=== PATIENT | female | born 1975 | race Caucasian/White ===

== ENCOUNTER → 2016-10-12 | Outpatient (CLI) | payer OTHER ==
--- NOTE | 2016-10-12 22:31 | US ---
EXAMINATION TYPE: US pelvis complete transvag DATE OF EXAM: 10/12/2016 4:55 PM COMPARISON: NONE CLINICAL HISTORY: 41-year-old female N92.0 MENORRHAGIA. Symptoms x 2 years; on thyroid meds status po st total thyroidectomy; large body habitus Date of LMP: 10/05/2016 TECHNIQUE: Multiple transabdominal sonographic images of the pelvis were obtained. Transvaginal scann ing was medically necessary to better evaluate the anatomy. FINDINGS: EXAM MEASUREMENTS: Uterus: 10.9 x 5.1 x 4.7cm Endometrial Stripe: 1.02 cm Right Ovary: 3.1 x 2.7 x 3.0cm Left Ovary: 2.3 x 2.9 x 2.2cm 1. Uterus: Anteverted Multiple Nabothian cysts, largest = 0.4 x 0.3 x 0.3 2. Endometrium: thick for Day 8 LMP as normal is 4 to 6mm. 3. Right Ovary: simple cyst = 3.1 x 1.9 x 3.0cm 4. Left Ovary: small cyst = 1.3 x 0.9 x 0.9cm 5. Bilateral Adnexa: wnl 6. Posterior cul-de-sac: wnl IMPRESSION: 1. Endometrial stripe measuring slightly thick (1.0 cm) for day 8 of the menstrual cycle. 2. A 3.1 cm dominant follicle or functional cyst in the right ovary.
== END | disposition home or self-care (01) ==
LOC: RADUSWWP 16:18
PROVIDERS: ATTEND Obstetrics & Gynecology
DX: N83.201 Unspecified ovarian cyst, right side (principal); N92.0 Excessive and frequent menstruation with regular cycle
CPT/HCPCS: 76830; 76856

== ENCOUNTER → 2016-11-09 | Outpatient (CLI) | payer OTHER ==
[2016-11-09 13:04] LABS: Basophils # (A) 0.1 k/uL (0-0.2); Basophils % (A) 1 %; CH 25.6; CHCM 29.6; Eosinophils % (A) 1 %; HCT 40.3 % (34.0-46.0); HDW 2.32; Hypochromasia Marked; Luc # (Auto) 0.17; Luc % (Auto) 3; Lymphocytes # (A) 1.8 k/uL (1.0-4.8); Lymphocytes % (A) 31 %; MCH 25.8 pg (25.0-35.0); MCHC 29.8 g/dL (31.0-37.0); MCV 86.7 fL (80.0-100.0); Mean Platelet Volume 6.6; Monocytes # (A) 0.3 k/uL (0-1.0); Monocytes % (A) 5 %; Neutrophils # (A) 3.4 k/uL (1.3-7.7); Neutrophils % (A) 60 %; RBC 4.65 m/uL (3.80-5.40); RDW 13.5 % (11.5-15.5); WBC 5.6 k/uL (3.8-10.6); WBC (Perox) 5.69
== END | disposition home or self-care (01) ==
LOC: LABPAT 12:26
PROVIDERS: ATTEND Obstetrics & Gynecology
DX: Z01.812 Encounter for preprocedural laboratory examination (principal)
CPT/HCPCS: 85025

== ENCOUNTER 2016-11-17 06:26 | Day surgery (SDC) | payer OTHER ==
[2016-11-16 09:46] VITALS: BMI 44.4
--- NOTE | 2016-11-16 19:28 | P.HPOB ---
History of Present Illness H&P Date: 11/16/16 Chief Complaint: Menorrhagia, Family planning This is a 41-year-old female 2 para 2 who presents for dilation and curettage with hysteroscopy and NovaSure endometrial ablation for menorrhagia with regular cycle and laparoscopic bilateral tubal ligation via fulguration for family planning. She complains of heavy menses that lasts at least 7 days with clotting. She also has occasional cramping. She has tried control pills in the past but did not like the side effects. Her pelvic ultrasound showed uterus measuring 10.9 x 5.1 x 4.7 cm with endometrial thickness of 1.02 cm. Her right ovary had a small simple cyst at 3.1 cm and the left ovary also had a small simple cyst at 1.3 cm. She complains of having to change a pad and tampon up to every half an hour during her heaviest part of her cycle. Obstetrical history: . History of 2 vaginal deliveries. Gynecologic history: No history of sexual transmitted diseases. Social history: She is single but has had a steady partner since 2014. 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 Review of Systems Constitutional: Reports fatigue, Reports weight loss Ears, nose, mouth and throat: Denies headache, Denies sore throat Cardiovascular: Denies chest pain, Denies shortness of breath Respiratory: Denies cough Gastrointestinal: Denies abdominal pain, Denies diarrhea, Denies nausea, Denies vomiting Genitourinary: Reports dysmenorrhea, Reports menorrhagia Menstruation: Reports period heavy Musculoskeletal: Denies myalgias Integumentary: Denies pruritus, Denies rash Neurological: Denies numbness, Denies weakness Psychiatric: Denies anxiety, Denies depression Past Medical History Past Medical History: Thyroid Disorder Additional Past Medical History / Comment(s): Anemia History of Any Multi-Drug Resistant Organisms: None Reported Past Surgical History: Orthopedic Surgery (Right wrist surgery, right ankle surgery), Tonsillectomy Additional Past Surgical History / Comment(s): Left partial thyroidectomy, right thyroidectomy Past Anesthesia/Blood Transfusion Reactions: Postoperative Nausea & Vomiting ( PONV) Past Psychological History: No Psychological Hx Reported Smoking Status: Never smoker Past Alcohol Use History: None Reported Past Drug Use History: None Reported - Past Family History Father Additional Family Medical History / Comment(s): "heart problems" Medications and Allergies Home Medications Medication Instructions Recorded Confirmed Type Levothyroxine Sodium [Synthroid] 75 mcg PO DAILY 11/16/16 11/16/16 History Levothyroxine Sodium [Synthroid] 300 mcg PO DAILY 11/16/16 11/16/16 History Allergies Allergy/AdvReac Type Severity Reaction Status Date / Time amoxicillin AdvReac Rash/Hives Verified 11/16/16 09:39 Exam Osteopathic Statement: *. No significant issues noted on an osteopathic structural exam other than those noted in the History and Physical/Consult. - Vital Signs Vital signs: Intake and Output 11/16/16 11/16/16 11/16/16 06:59 14:59 22:59 Other: Weight 140.614 kg Patient Weight 11/17/16 06:59 Weight 140.614 kg HEENT: Within normal limits Heart: Regular rate and rhythm Lungs: Clear to auscultation bilaterally Abdomen: Soft, nontender Pelvic exam: Uterus is mildly enlarged, anteverted, with no adnexal masses or tenderness palpated Extremities: Negative Homans Assessment and Plan (1) Menorrhagia with regular cycle Status: Acute (2) Family planning Status: Acute Plan: Proceed with dilation and curettage with hysteroscopy and NovaSure endometrial ablation along with laparoscopic bilateral tubal ligation via fulguration. I have discussed the risks, benefits, and alternative therapies for the above- mentioned procedure and for both sedation/anesthesia as well as necessary blood products administration, if indicated, as they pertain to this patient. The patient has indicated her understanding and acceptance of the risks and procedures discussed.
[~2016-11-17 06:26] MED LIST: DEXAMETHASONE SOD PHOSPHATE 10 MG/ML 1 ML VIAL IV ONE; LACTATED RINGERS 1,000 ML IV SCH; LIDOCAINE 1% 20 ML VIAL (10MG/ML) FOR IV START INTRADERMA PRN; MIDAZOLAM 2 MG/2 ML VIAL IV PRN; ONDANSETRON 4 MG/2 ML VIAL IVP ONE; Pre Op ABX Message 1 EACH MISC MISCELLANE ONE; SCOPOLAMINE 1.5MG/72HR PATCH TRANSDERM ONE
[2016-11-17] MEDS ORDERED: LIDOCAINE 1% 20 ML VIAL (10MG/ML) FOR IV START INTRADERMA ONE (06:58)
[2016-11-17] MEDS ORDERED: KETOROLAC 30 MG/ML 1 ML VIAL ONE (07:30)
[2016-11-17] MEDS ORDERED: NEOSTIGMINE 1 MG/ML 10 ML VIAL ONE (07:30)
[2016-11-17] MEDS ORDERED: SUCCINYLCHOLINE CHLORIDE 100 MG/5 ML SYR IV ONE (07:30)
[2016-11-17] MEDS ORDERED: HYDROmorphone (PF) 1 MG/ML ONE (07:30)
[2016-11-17] MEDS ORDERED: fentaNYL (PF) 50 MCG/ML 2 ML AMP ONE (07:30)
[2016-11-17] MEDS ORDERED: PROPOFOL 10 MG/ML 20 ML VIAL IV ONE (07:30)
[2016-11-17] MEDS ORDERED: MIDAZOLAM 2 MG/2 ML VIAL ONE (07:30)
[2016-11-17] MEDS ORDERED: ROCURONIUM BROMIDE 10 MG/ML 10 ML VIAL IV ONE (07:30)
[2016-11-17] MEDS ORDERED: GLYCOPYRROLATE 0.2 MG/ML 2 ML VIAL ONE (07:30)
[2016-11-17] MEDS ORDERED: BUPIVACAINE (PF) 0.25% 30 ML VIAL SQ ONE ×2 (07:53→08:16)
--- NOTE | 2016-11-17 08:22 | P.OP ---
Date of Procedure: 11/17/16 Preoperative Diagnosis: Menorrhagia, family planning Postoperative Diagnosis: Same Procedure(s) Performed: Laparoscopic bilateral tubal ligation via fulguration and dilation and curettage with hysteroscopy and NovaSure endometrial ablation Anesthesia: MICHAEL Surgeon: Latrice Young Estimated Blood Loss (ml): 5 Pathology: other (Endometrial curettings) Condition: stable Disposition: same day Indications for Procedure: This is a 41-year-old female 2 para 2 who presents for dilation and curettage with hysteroscopy and NovaSure endometrial ablation for menorrhagia with regular cycle and laparoscopic bilateral tubal ligation via fulguration for family planning. She complains of heavy menses that lasts at least 7 days with clotting. She also has occasional cramping. She has tried control pills in the past but did not like the side effects. Her pelvic ultrasound showed uterus measuring 10.9 x 5.1 x 4.7 cm with endometrial thickness of 1.02 cm. Her right ovary had a small simple cyst at 3.1 cm and the left ovary also had a small simple cyst at 1.3 cm. She complains of having to change a pad and tampon up to every half an hour during her heaviest part of her cycle. Operative Findings: Uterus is anteverted, sounded to 12 cm. Cervix is sounded to 3 cm. Upon hysteroscopy, a dyssynchronous endometrial pattern was noted. There was minimal endometrial curettings. Upon laparoscopy, both tubes appeared normal. The left ovary was adherent to the backside of the uterus and did appear to have some endometriosis noted. The right ovary appeared normal. Uterus appeared normal contour. Description of Procedure: The patient is taken to the operating room. She is placed in the dorsal lithotomy position after general anesthesia was given. She is prepped and draped in the normal sterile fashion. Bladder is drained with a catheter and then removed. Pelvic exam is performed under anesthesia. Uterus is found to be anteverted with no adnexal masses. She is placed in slight Trendelenburg position. A right angle retractor is used to visualize the cervix. The anterior lip of the cervix is grasped with a single-tooth tenaculum. Cervix is sounded to 3 cm. Uterus is sounded to 12 cm. Cervix is gently dilated with Schilling dilators until a hysteroscope could be passed. Hysteroscopy is performed using normal saline. The above noted findings are noted. Next a polyp forceps is introduced. A minimal amount of tissue was obtained. Next medium-sized size sharp curette was placed. A minimal to moderate amount of endometrial curettings were obtained. Next NovaSure array was inserted into the endometrial cavity. Length was set at 6.5 cm and width was determined to be 5 cm. Next cavity assessment was completed and passed on the first try. Next NovaSure array was fired at 179 W for 65 seconds. Next the array was removed, inspected and then discarded. Next the hysteroscope was reinserted. Uniform charring was noted. Pictures were taken. Hysteroscope was removed. Next the kroner uterine manipulator was inserted through the cervix and the balloon was inflated. Single-tooth tenaculum was removed from the anterior lip of the cervix. Minimal bleeding was noted. Speculum was removed. Next attention was turned to the abdomen. Gloves are changed. The infraumbilical fold was grasped in transverse fashion with 2 Allis clamps. A small transverse incision was made with a scalpel. A hemostat was used to carry the incision down to the underlying layer of fascia. A towel clip was placed above the umbilicus for retraction. A 11 mm disposable bladeless trocar was then inserted into the peritoneal cavity under direct visualization. Once inside, pneumoperitoneum was achieved with CO2 gas. The insert was removed and the camera was placed. Intraperitoneal placement was confirmed. No bleeding was noted. Next the patient was placed in Trendelenburg position. A small stab incision was made suprapubically and a 5 mm disposable bladeless trocar was inserted into the peritoneal cavity under direct visualization. Once inside pelvic contents were inspected. Next a bipolar Kleppinger instrument was placed through the inferior trocar and the midportion of each tube was brought away from other structures and completely fulgurated on approximate 2-3 cm segment of each tube. Excellent hemostasis was noted. A picture was taken. Pneumoperitoneum was released after the inferior trocar was removed under direct visualization. The upper trocar was then removed. The fascial incision was closed with 0 Vicryl suture in interrupted [id number] stitch. The skin incisions were then closed with 4- 0 Vicryl suture in a subcuticular fashion. Incisions were then injected with quarter percent Marcaine. Approximately 9 mL were used. Next the kroner uterine manipulator was removed. Minimal bleeding was noted. All sponge and needle counts are correct. The patient is then taken to recovery room in stable condition.
[2016-11-17 08:34] VITALS: TEMP 96.8
[2016-11-17 08:35] VITALS: RESP 16
[2016-11-17] MEDS: HYDROmorphone 1 MG/ML 1 ML SYRINGE IVP PRN ×2 (08:40→08:48)
[2016-11-17] MEDS ORDERED: ONDANSETRON 4 MG/2 ML VIAL IVP ONE (11:16)
[2016-11-17 11:41] VITALS: BP 105/67; PULSE 50
== END 2016-11-17 11:47 | disposition home or self-care (01) ==
LOC: OR 06:26
PROVIDERS: ATTEND Obstetrics & Gynecology
DX: N92.0 Excessive and frequent menstruation with regular cycle (principal); N85.9 Noninflammatory disorder of uterus, unspecified; Z30.2 Encounter for sterilization; N83.202 Unspecified ovarian cyst, left side; N83.201 Unspecified ovarian cyst, right side; E07.9 Disorder of thyroid, unspecified; Z88.0 Allergy status to penicillin; Z79.899 Other long term (current) drug therapy
CPT/HCPCS: 81025; 88305; 58563; 58670; J2250; J1100; J2710; J2405; J3010; J1885; J1170; J0330; J2704

== ENCOUNTER → 2017-10-19 | Outpatient (CLI) | payer OTHER ==
--- NOTE | 2017-10-22 07:32 | MM ---
Reason for exam: screening (asymptomatic). Last mammogram was performed 1 year and 6 months ago. History: Took hormonal contraceptives for 3 years beginning at age 19. Physical Findings: A clinical breast exam by your physician is recommended on an annual basis and results should be correlated with mammographic findings. MG Screening Mammo w CAD Bilateral CC and MLO view(s) were taken. Prior study comparison: April 16, 2016, bilateral MG screening mammo w CAD. There are scattered fibroglandular densities. No significant changes when compared with prior studies. ASSESSMENT: Negative, BI-RAD 1 RECOMMENDATION: Routine screening mammogram of both breasts in 1 year.
== END | disposition home or self-care (01) ==
LOC: RADMAMWWP 07:30
PROVIDERS: ATTEND Obstetrics & Gynecology
DX: Z12.31 Encounter for screening mammogram for malignant neoplasm of breast (principal)
CPT/HCPCS: 77067

== ENCOUNTER → 2019-05-19 | Outpatient (CLI) | payer OTHER ==
--- NOTE | 2019-05-22 08:20 | MM ---
Reason for exam: screening (asymptomatic). Last mammogram was performed 1 year and 7 months ago. History: Took hormonal contraceptives for 3 years beginning at age 19. Physical Findings: A clinical breast exam by your physician is recommended on an annual basis and results should be correlated with mammographic findings. MG Screening Mammo w CAD Bilateral CC, MLO, and XCCL view(s) were taken. Prior study comparison: October 19, 2017, bilateral MG screening mammo w CAD. April 16, 2016, bilateral MG screening mammo w CAD. The breast tissue is heterogeneously dense. This may lower the sensitivity of mammography. Benign calcifications. There is chronic nodularity in the right breast. No significant changes when compared with prior studies. ASSESSMENT: Benign, BI-RAD 2 RECOMMENDATION: Routine screening mammogram of both breasts in 1 year.
== END | disposition home or self-care (01) ==
LOC: RADMAMWWP 07:10
PROVIDERS: ATTEND Internal Medicine
DX: Z12.31 Encounter for screening mammogram for malignant neoplasm of breast (principal)
CPT/HCPCS: 77067

== ENCOUNTER → 2021-05-23 | Outpatient (CLI) | payer BC ==
[2021-05-23 16:46] LABS: INR 0.9 (<1.2); Prothrombin Time 9.8 sec (9.0-12.0)
[2021-05-23 16:47] LABS: Partial Thromboplastin Time 24.3 sec (22.0-30.0)
[2021-05-23 23:29] LABS: HCT 40.1 % (37.2-46.3); HGB 12.4 g/dL (12.0-15.0); MCH 27.5 pg (27.0-32.0); MCHC 30.9 g/dL (32.0-37.0); MCV 88.9 fL (80.0-97.0); Mean Platelet Volume 10.7 fL (9.5-12.2); Platelet Count 283 X 10*3/uL (140-440); RBC 4.51 X 10*6/uL (4.10-5.20); RDW 13.3 % (11.5-14.5); WBC 5.51 X 10*3/uL (4.50-10.00)
[2021-05-24 04:18] LABS: % Iron Saturation 6.99 (12.00-45.00); ALT 16 U/L (8-44); AST 27 U/L (13-35); African American GFR (CKD) 120.4 (60.0-200.0); Albumin 4.3 g/dL (3.8-4.9); Albumin/Globulin Ratio 1.72 (1.60-3.17); Alkaline Phosphatase 49 U/L (41-126); BUN/Creat Ratio 13.71 Ratio (12.00-20.00); Blood Urea Nitrogen 9.6 mg/dL (9.0-27.0); Calcium 8.9 mg/dL (8.7-10.3); Carbon Dioxide 24.5 mmol/L (21.6-31.8); Chloride 105 mmol/L (96-109); Chol/HDL Ratio 3.11 Ratio; Globulin 2.5 g/dL (1.6-3.3); Glucose 88 mg/dL (70-110); Iron 28 ug/dL (50-170); LDL Cholesterol,Calculated 103.5 mg/dL (0.0-131.0); Magnesium 2.1 mg/dL (1.5-2.4); Non-African American GFR(CKD) 103.9 (60.0-200.0); Phosphorus 3.6 mg/dL (2.4-5.1); Potassium 4.6 mmol/L (3.5-5.5); Prealbumin 18.8 mg/dL (18.0-42.0); Sodium 139 mmol/L (135-145); Total Bilirubin <0.20 mg/dL (0.30-1.20); Total Iron Binding Capacity 393 ug/dL (228-460); Total Protein 6.8 g/dL (6.2-8.2)
[2021-05-26 14:28] LABS: Zinc, Serum 77 ug/dL (60-130)
[2021-05-27 08:31] LABS: Vitamin A 39 ug/dL (38-106)
[2021-05-27 08:36] LABS: Anabasine Urine <2.0 ng/mL (<2.0)
[2021-05-28 12:22] LABS: Vit B1(Thiamine) 71 ug/L (38-122)
== END | disposition home or self-care (01) ==
LOC: LABWHC1 15:54
PROVIDERS: ATTEND Surgery Plastic and Reconstructive Surgery
DX: Z71.51 Drug abuse counseling and surveillance of drug abuser (principal); D50.8 Other iron deficiency anemias; E44.0 Moderate protein-calorie malnutrition; E55.9 Vitamin D deficiency, unspecified; N19 Unspecified kidney failure; E66.01 Morbid (severe) obesity due to excess calories; E89.1 Postprocedural hypoinsulinemia; K50.90 Crohn's disease, unspecified, without complications
CPT/HCPCS: 84255; 84134; 84425; 80061; 80053; 82607; 82728; 82525; 82746; 83540; 83550; 83735; 84100; 84443; 84590; 84630; 85027; 85610; 85730; 82306; 80323; 83970; 83036; 80307; 93005; 36415; G0482

== ENCOUNTER → 2021-05-30 | Outpatient (CLI) | payer BC ==
--- NOTE | 2021-06-02 11:44 | MM ---
Reason for exam: screening (asymptomatic). Last mammogram was performed 2 years ago. History: Took hormonal contraceptives for 3 years beginning at age 19. Physical Findings: A clinical breast exam by your physician is recommended on an annual basis and results should be correlated with mammographic findings. MG 3D Screening Mammo W/Cad Bilateral CC, MLO, and XCCL view(s) were taken. Prior study comparison: May 19, 2019, bilateral MG screening mammo w CAD. October 19, 2017, bilateral MG screening mammo w CAD. There are scattered fibroglandular densities. There is chronic nodularity in the left breast. There is no discrete abnormality. ASSESSMENT: Benign, BI-RAD 2 RECOMMENDATION: Routine screening mammogram of both breasts in 1 year.
== END | disposition home or self-care (01) ==
LOC: RADMAMWWP 08:12
PROVIDERS: ATTEND Family Medicine
DX: Z12.31 Encounter for screening mammogram for malignant neoplasm of breast (principal)
CPT/HCPCS: 77063; 77067

== ENCOUNTER → 2021-07-09 | Outpatient (CLI) | payer BC | END | disposition home or self-care (01) | LOC: LABWHC1 07:35 | PROVIDERS: ATTEND Surgery Plastic and Reconstructive Surgery | DX: E03.9 Hypothyroidism, unspecified (principal) | CPT/HCPCS: 36415; 84443 ==

== ENCOUNTER → 2021-09-04 | Outpatient (CLI) | payer BC ==
[2021-09-04 10:55] VITALS: BP 141/90; PULSE 85; RESP 16; TEMP 98; BMI 54.4
== END ==
LOC: BARWHC3 09:20
PROVIDERS: ATTEND Surgery Plastic and Reconstructive Surgery
DX: E66.01 Morbid (severe) obesity due to excess calories (principal); Z68.43 Body mass index [BMI] 50.0-59.9, adult
CPT/HCPCS: 99211

== ENCOUNTER → 2021-09-18 | Outpatient (CLI) | payer BC ==
[2021-09-18 15:01] LABS: Basophils # (A) 0.05 X 10*3/uL (0.00-0.10); Basophils % (A) 1.1 %; Eosinophils # (A) 0.05 X 10*3/uL (0.04-0.35); Eosinophils % (A) 1.1 %; HCT 43.6 % (37.2-46.3); HGB 13.9 g/dL (12.0-15.0); Immature Grans, Automated 0.2 %; Lymphocytes # (A) 0.98 X 10*3/uL (0.90-5.00); Lymphocytes % (A) 20.7 %; MCH 27.6 pg (27.0-32.0); MCHC 31.9 g/dL (32.0-37.0); MCV 86.5 fL (80.0-97.0); Mean Platelet Volume 10.4 fL (9.5-12.2); Monocytes % (A) 8.4 %; NRBC Per 100 WBC 0 /100 WBCS (0.0-0.0); Neutrophils # (A) 3.25 X 10*3/uL (1.80-7.70); Neutrophils % (A) 68.5 %; Platelet Count 235 X 10*3/uL (140-440); RBC 5.04 X 10*6/uL (4.10-5.20); RDW 12.4 % (11.5-14.5); WBC 4.74 X 10*3/uL (4.50-10.00)
[2021-09-18 15:06] LABS: African American GFR (CKD) 120.4 (60.0-200.0); Albumin 4.4 g/dL (3.8-4.9); Albumin/Globulin Ratio 1.47 (1.60-3.17); Anion Gap 15.6 mmol/L (10.00-18.00); BUN/Creat Ratio 20.71 Ratio (12.00-20.00); Blood Urea Nitrogen 14.5 mg/dL (9.0-27.0); Calcium 9.3 mg/dL (8.7-10.3); Carbon Dioxide 20.4 mmol/L (20.0-27.5); Non-African American GFR(CKD) 103.9 (60.0-200.0); Potassium 4.2 mmol/L (3.5-5.5); Total Bilirubin 0.4 mg/dL (0.30-1.20); Total Protein 7.4 g/dL (6.2-8.2)
[2021-09-19 13:58] LABS: Coronavirus SARS CoV-2 Not Detected (Not Detected)
== END | disposition home or self-care (01) ==
LOC: LABPAT 07:37
PROVIDERS: ATTEND Surgery Plastic and Reconstructive Surgery
DX: Z01.812 Encounter for preprocedural laboratory examination (principal); Z20.822 Contact with and (suspected) exposure to COVID-19
CPT/HCPCS: 80053; 85025; U0003

== ENCOUNTER 2021-09-22 10:57 | Inpatient (IN) | payer BC ==
[2021-09-19 10:26] VITALS: BMI 50.8
[~2021-09-22 10:57] MED LIST changes: -DEXAMETHASONE SOD PHOSPHATE 10 MG/ML 1 ML VIAL IV ONE; +DEXAMETHASONE SOD PHOSPHATE 4 MG/ML 1 ML VIAL IV ONE; +LIDOCAINE 1% (10MG/ML) FOR IV START INTRADERMA PRN; -LIDOCAINE 1% 20 ML VIAL (10MG/ML) FOR IV START INTRADERMA PRN; -Pre Op ABX Message 1 EACH MISC MISCELLANE ONE; -SCOPOLAMINE 1.5MG/72HR PATCH TRANSDERM ONE; +ceFAZolin 3 GM in SODIUM CHLORIDE 0.9% 100 ML IVPB PRN
[2021-09-22] MEDS ORDERED: PANTOPRAZOLE 40 MG/10 ML VIAL IVP STA (12:19)
[2021-09-22] MEDS ORDERED: ENOXAPARIN 40 MG/0.4 ML SYRINGE SQ STA (12:19)
[2021-09-22] MEDS ORDERED: CHLORHEXIDINE GLUCONATE 15 ML CUP MUCOUS MEM STA (12:19)
[2021-09-22] MEDS ORDERED: GABAPENTIN 300 MG CAP PO STA (12:20)
[2021-09-22] MEDS ORDERED: ACETAMINOPHEN TAB 500 MG TAB PO STA (12:20)
[2021-09-22] MEDS ORDERED: SCOPOLAMINE 1.5MG/72HR PATCH TRANSDERM STA (12:20)
[2021-09-22] MEDS ORDERED: TAMSULOSIN 0.4 MG CAP.ER.24H PO STA (12:20)
[2021-09-22] MEDS ORDERED: ACETAMINOPHEN TAB 500 MG TAB ONE (12:22)
[2021-09-22] MEDS ORDERED: CHLORHEXIDINE GLUCONATE 15 ML CUP MUCOUS MEM ONE (12:23)
--- NOTE | 2021-09-22 12:25 | P.GSHP ---
History of Present Illness H&P Date: 09/22/21 CHIEF COMPLAINT: Morbid obesity HISTORY OF PRESENT ILLNESS: The patient is a 46-year-old female who presents with morbid obesity. She has completed medical risk assessment including medically supervised weight loss. Now she presents for surgical intervention. PAST MEDICAL HISTORY: Please see list. PAST SURGICAL HISTORY: Please see list. MEDICATIONS: Please see list. ALLERGIES: Please see list. SOCIAL HISTORY: No illicit drug use FAMILY HISTORY: Morbid obesity REVIEW OF ORGAN SYSTEMS: CONSTITUTIONAL: No reports of fevers or chills. GI: Denies any blood in stools or constipation. PHYSICAL EXAM: VITAL SIGNS: Stable GENERAL: Well-developed pleasant and in no acute distress. HEENT: No scleral icterus. Extraocular movements grossly intact. Moist buccal mucosa. NECK: Supple without lymphadenopathy. CHEST: Unlabored respirations. Equal bilateral excursions. CARDIOVASCULAR: Regular rate and rhythm. Distal 2+ pulses. ABDOMEN: Soft, nondistended. No peritoneal signs. MUSCULOSKELETAL: No clubbing, cyanosis, or edema. SKIN: Well-perfused. Good skin turgor. ASSESSMENT: 1. Morbid obesity due to excess calories, BMI 54.6 2. Osteoarthritis of the knee 3. Osteoarthritis of the hip 4. Osteoarthritis lower back PLAN: 1. Bariatric options between a sleeve, band and a Lisa-en-Y gastric bypass were reviewed in detail. The patient elected for a sleeve gastrectomy. Robotic assisted approach described. 2. The [place] [facility] Data was also reviewed with benefits and risks as described. 3. An 8 page second-generation bariatric consent form was reviewed in detail including potential of bleeding, infection, leaks, adequate weight loss, nu tritional deficiencies which the patient demonstrated understanding of the risks. 4. A 2 week high-protein low caloric 800 kcal diet described to address hepatomegaly. 5. Preoperative labs including complete metabolic panel and CBC with type and screen recommended. 6. DVT prophylaxis per [place] [facility]ariat[facility] collaborative. 7. Antibiotic prophylaxis. 8. Inpatient hospitalization anticipated for more than 2 nights. 9. All questions and concerns were addressed with the patient. 10. She is at elevated risk with morbid obesity BMI over 50 Past Medical History Past Medical History: GERD/Reflux, Thyroid Disorder Additional Past Medical History / Comment(s): migraines, History of Any Multi-Drug Resistant Organisms: None Reported Past Surgical History: Orthopedic Surgery, Tonsillectomy, Tubal Ligation, Uterine Ablation Additional Past Surgical History / Comment(s): right ankle ORIF- 6 screws. rt hand ORIF/pins later removed, partial thyroidectomy, "surgery to scrape cervix" Past Anesthesia/Blood Transfusion Reactions: Postoperative Nausea & Vomiting (PONV) Smoking Status: Never smoker - Past Family History Mother Family Medical History: No Reported History Medications and Allergies Home Medications Medication Instructions Recorded Confirmed Type Levothyroxine Sodium [Synthroid] 200 mcg PO DAILY #30 tablet 06/04/21 09/22/21 Rx Allergies Allergy/AdvReac Type Severity Reaction Status Date / Time amoxicillin AdvReac Rash/Hives/yeast Verified 09/22/21 11:16 infection Surgical - Exam Vital Signs Temp Pulse Resp BP Pulse Ox 98.1 F 86 16 141/78 98 09/22/21 11:26 09/22/21 11:26 09/22/21 11:26 09/22/21 11:26 09/22/21 11:26
[2021-09-22] MEDS ORDERED: NEOSTIGMINE 1 MG/ML 10 ML VIAL ONE (12:50)
[2021-09-22] MEDS ORDERED: diphenhydrAMINE 50 MG/ML 1 ML VIAL ONE (12:50)
[2021-09-22] MEDS ORDERED: PROPOFOL 10 MG/ML 20 ML VIAL IV ONE (12:50)
[2021-09-22] MEDS ORDERED: SUCCINYLCHOLINE CHLORIDE VIAL 200 MG/10 ML VIAL IV ONE (12:50)
[2021-09-22] MEDS ORDERED: HYDROmorphone (PF) 1 MG/ML ONE (12:50)
[2021-09-22] MEDS ORDERED: GLYCOPYRROLATE 0.2 MG/ML 2 ML VIAL ONE (12:50)
[2021-09-22] MEDS ORDERED: ROCURONIUM 10 MG/ML (5 ML VIAL) IV ONE (12:50)
[2021-09-22] MEDS ORDERED: LIDOCAINE 1% INJ 10MG/ML (20 ML MDV) ONE (12:50)
[2021-09-22] MEDS ORDERED: fentaNYL (PF) 50 MCG/ML 2 ML AMP ONE (12:50)
[2021-09-22] MEDS ORDERED: MIDAZOLAM 2 MG/2 ML VIAL ONE (12:50)
[2021-09-22] MEDS ORDERED: BUPIVACAIN-EPI 0.25%-1:200,000 30 ML VIAL SQ ONE (13:43)
[2021-09-22] MEDS ORDERED: HYDROmorphone 1 MG/ML 1 ML SYRINGE IVP PRN (14:51)
[2021-09-22] MEDS ORDERED: NALOXONE 0.4 MG/ML 1 ML VIAL IV PRN (14:51)
--- NOTE | 2021-09-22 14:59 | P.OP ---
Date of Procedure: 09/22/21 Description of Procedure: SURGEON: FLORINA GARCIA MD PREOPERATIVE DIAGNOSES: 1. Morbid obesity due to excess calories, BMI 54.6 2. Osteoarthritis of the knee 3. Osteoarthritis of the hip 4. Osteoarthritis lower back 5. Hypothyroidism POSTOPERATIVE DIAGNOSES: 1. Morbid obesity due to excess calories, BMI 54.6 2. Osteoarthritis of the knee 3. Osteoarthritis of the hip 4. Osteoarthritis lower back 5. Hypothyroidism OPERATION: 1. Robotic assisted daVinci Xi laparoscopic sleeve gastrectomy with 40-Uzbek bougie, multiport. 2. Intraoperative esophagogastroduodenoscopy. ANESTHESIA: Gen. local anesthetic ESTIMATED BLOOD LOSS: 5 mL SPECIMENS REMOVED: Sleeve gastrectomy COMPLICATIONS: None. FINDINGS: 1. Negative intraoperative esophagogastrojejunoscopy leak test. 2. No hepatomegaly and no large hiatus hernia. 3. Total of 6 staplers used including 1 - 60 mm green robot thalia and 5 - 60 mm blue robot loads used to create the gastric sleeve. 4. Sleeve gastrectomy, 27 x 5 cm INDICATIONS: Radha Partida is a 46-year-old female who comes with lifelong morbid obesity. She is looking into the sleeve gastrectomy. She has comorbidities including osteoarthritis of the knees and back. All surgical options for morbid obesity had been described using the [place] [facility]ariat[facility] collaborative comorbidity resolution including complication risk score. A second-generation bariatric consent form was described in detail including the possibility of protein malnutrition, leaks, gastric stricture, venous thrombosis, gastroesophageal reflux disease, need for further surgery for which she demonstrated understanding. Benefits and risks of the procedure were described at length. Informed consent was obtained. DESCRIPTION: The patient was brought into the operating room theater. Preoperatively she had received Lovenox subcutaneously for DVT prophylaxis. Additionally she had Peridex oral solution as an oral decontaminant. After general induction, the abdomen was prepped and draped in standard sterile fashion. An Ioban draping was placed along the abdomen. A robotic da Paz Xi system was prepped and primed. At 15 cm from the xiphoid, proposed port sites were marked with indelible marker along the anterior axillary line bilaterally, mid axillary line bilaterally with each ports were marked 10 to 15 cm from each other. The robotic stapler port was marked for the right midclavicular line. A 5 mm 0 degrees laparoscopic trocar entry was performed along the left upper quadrant. The abdomen was insufflated to 15 mmHg pressure was tolerated well. Diagnostic laparoscopy demonstrated no injury to bowel, viscera, or mesentery. No evidence of large hiatus hernia was identified. The liver edge was sharp consistent with 2 week low-carb high-protein diet. A 8 mm port was placed along the left upper abdominal wall after exchanging the 5 mm port. A separate 8 mm port was placed along the left lateral abdominal wall. Please note that the ports were placed at least 20 cm away from the target anatomy. Care was taken to check each robotic arms were safely away from collision with the bed or the patient. At the epigastrium, a medium sized Lul liver retractor was placed under direct visualization with the [employer] placed under the right shoulder of the patient. Next, 12-mm robot stapler port was placed along the right upper quadrant. The camera 8-mm port was maintained along the epigastrium. The patient was repositioned in reverse Trendelenburg position at 21-degrees after lowering the bed. The robot was docked along the left side of the patient. Using a grasper for arm 4, a vessel sealer for arm 3, including grasper for arm 1, the robotic system was docked and primed as described. Instruments were interchanged by the certified physical therapist assistant for stapler loads. The camera was placed at 30- degrees down. I had sat at the console. The stomach topology was consistent with a right angle. The pylorus was identified 4 cm proximally along the greater curvature of the stomach, the short gastrics were mobilized upwards to the angle of His using a vessel sealer. Hemostasis was excellent during this portion of the procedure. Next, the upper pole of the stomach was adherent to the left janell, which was gently dissected free using atraumatic grasper. I went to the head of the bed and placed 40-Uzbek blunt bougie into the stomach. The bougie was readjusted by the nurse dovetailer. green load 60 mm 1 followed by blue 60 mm x 5 loads were used to create the sleeve. Initial firing was across the antrum of the stomach towards the angle of His. The staple line was linear without corkscrewing. The space from the angularis incisura of the sleeve was approximately 4 cm. I then went to the head of the bed to perform the intraoperative esophagogastroduodenoscopy leak test. The bougie was withdrawn. The upper pole of the stomach was bathed using normal saline solution. The scope was withdrawn with careful inspection along the staple line for which no leaks were found along the entire length. Additionally,the sleeve was completely hemostatic without any encroachment along the angularis incisura. Its topology was a soft "J". No stricture was encountered upon placement of the scope. The GI tract was desufflated. The patient tolerated this portion of the procedure well. The scope was completely withdrawn. The robot was undocked. I then rescrubbed into case, whereby the irrigation fluid was aspirated from the abdominal cavity. Tisseel fibrin sealant was placed along the entire staple length. Once dried the Lul liver retractor was removed. Attention was now brought to removal of the specimen. The distal end of the sleeve gastrectomy specimen was brought out through the 12 mm port at the left upper quadrant. The specimen was gently removed en total. No contamination had occurred during this process. All instruments and pneumoperitoneum including irrigation fluid was removed from the abdominal cavity. The 12 mm port site was closed using 0-Vicryl and Gurjit Alford and irrigated with diluted hydrogen peroxide. The final incisions were closed using subcuticular interrupted suture of 4-0 Monocryl. Exofin was applied to the skin once the skin had been cleansed. OptiFoam dressing was placed along the stomach extraction site. The sleeve specimen was measured and checked also for leaks which none were found. At the end of the procedure, needle, sponge, and instrument count was verified correct by the hearing aide technician. The patient was taken to the postanesthesia care unit in stable condition. She had tolerated the procedure well. Intraoperative films and findings were re viewed with the patient's family.
[2021-09-22] MEDS: HYDROmorphone 0.5 MG/0.5 ML SYRINGE IVP PRN ×4 (15:04→18:52)
[2021-09-22] MEDS ORDERED: LACTATED RINGERS 1,000 ML IV ONE (15:24)
[2021-09-22] MEDS: ALBUTEROL NEBULIZED 2.5 MG/3 ML INHALATION SCH ×2 (16:13→19:09)
[2021-09-22] MEDS: ACETAMINOPHEN IV (For NPO) 1,000 MG in EMPTY BAG 1 BAG IVPB SCH (19:57)
[2021-09-22] MEDS: ONDANSETRON 4 MG/2 ML VIAL IVP SCH ×2 (19:58→23:53)
[2021-09-22] MEDS: METOCLOPRAMIDE 5 MG/ML 2 ML VIAL IVP SCH ×2 (19:58→23:53)
[2021-09-22] MEDS: PANTOPRAZOLE 40 MG/10 ML VIAL IV SCH (19:59)
[2021-09-22] MEDS: SODIUM CHLORIDE 0.9% 1,000 ML IV SCH ×2 (19:59→23:37)
[2021-09-22] MEDS ORDERED: DEXAMETHASONE SOD PHOSPHATE 10 MG/ML 1 ML VIAL IVP ONE (20:00)
[2021-09-22] MEDS: ceFAZolin 3 GM in SODIUM CHLORIDE 0.9% 100 ML IVPB SCH (20:32)
[2021-09-22] MEDS: SIMETHICONE 40 MG/0.6 ML DROPS 2,000 MG/30 ML BOTTLE PO SCH ×2 (20:38→23:53)
[2021-09-22] MEDS: HYOSCYAMINE ORAL DROPS 1.875 MG/15 ML BOTTLE PO SCH ×2 (20:38→23:54)
[2021-09-22] MEDS: 0.9% NACL WITH KCL 20 MEQ/L 1,000 ML IV SCH (23:52)
[2021-09-22] MEDS: DEXAMETHASONE SOD PHOSPHATE 4 MG/ML 1 ML VIAL IVP SCH (23:53)
[2021-09-23] MEDS: ACETAMINOPHEN IV (For NPO) 1,000 MG in EMPTY BAG 1 BAG IVPB SCH ×3 (02:25→14:33)
[2021-09-23] MEDS: ceFAZolin 3 GM in SODIUM CHLORIDE 0.9% 100 ML IVPB SCH (05:00)
[2021-09-23] MEDS: DEXAMETHASONE SOD PHOSPHATE 4 MG/ML 1 ML VIAL IVP SCH ×3 (05:01→12:00)
[2021-09-23] MEDS: METOCLOPRAMIDE 5 MG/ML 2 ML VIAL IVP SCH ×3 (05:02→12:00)
[2021-09-23] MEDS: ONDANSETRON 4 MG/2 ML VIAL IVP SCH ×2 (05:02→11:44)
[2021-09-23] MEDS: HYOSCYAMINE ORAL DROPS 1.875 MG/15 ML BOTTLE PO SCH ×3 (05:02→17:05)
[2021-09-23] MEDS: 0.9% NACL WITH KCL 20 MEQ/L 1,000 ML IV SCH (05:02)
[2021-09-23] MEDS: SIMETHICONE 40 MG/0.6 ML DROPS 2,000 MG/30 ML BOTTLE PO SCH ×3 (05:02→17:04)
[2021-09-23] MEDS: PANTOPRAZOLE 40 MG/10 ML VIAL IV SCH (07:49)
[2021-09-23] MEDS ORDERED: 0.9% NACL WITH KCL 20 MEQ/L 1,000 ML IV SCH (08:00)
[2021-09-23] MEDS: ALBUTEROL NEBULIZED 2.5 MG/3 ML INHALATION SCH ×3 (08:49→16:38)
--- NOTE | 2021-09-23 08:50 | FL ---
EXAMINATION TYPE: FL UGI DATE OF EXAM: 09/23/2021 LIMITED UGI: CLINICAL HISTORY: Morbid Obesity, gastric sleeve surgery yesterday. TECHNIQUE: Limited esophagram is performed utilizing 40 oz of Isovue-370. A total of 45 seconds of f luoroscopic time was utilized during procedure and 36 images obtained. COMPARISON: None. FINDINGS: The patient swallowed contrast without difficulty or delay. Esophageal peristalsis and mo tility are within normal limits. There is good flow of contrast along the diaphragmatic hiatus into proximal stomach and subsequent minimal delay flow into gastric sleeve through proximal anastomosis. There is mild delay in flow from distal anastomosis into pylorus and duodenal sweep. Patient remains asymptomatic. There is no evidence of contrast extravasation to suggest leak. IMPRESSION: No evidence of leak or significant obstruction status post recent gastric sleeve surgery.
[2021-09-23] MEDS ORDERED: ENOXAPARIN 40 MG/0.4 ML SYRINGE SQ SCH (09:00)
[2021-09-23 09:11] LABS: Basophils # (A) 0 X 10*3/uL (0.00-0.10); Basophils % (A) 0 %; Eosinophils # (A) 0 X 10*3/uL (0.04-0.35); Eosinophils % (A) 0 %; HCT 43.9 % (37.2-46.3); HGB 13.4 g/dL (12.0-15.0); Immature Grans, Automated 0.2 %; Lymphocytes # (A) 0.37 X 10*3/uL (0.90-5.00); Lymphocytes % (A) 8.3 %; MCH 27.2 pg (27.0-32.0); MCHC 30.5 g/dL (32.0-37.0); Mean Platelet Volume 10.8 fL (9.5-12.2); Monocytes # (A) 0.05 X 10*3/uL (0.20-1.00); Monocytes % (A) 1.1 %; NRBC Per 100 WBC 0 /100 WBCS (0.0-0.0); Neutrophils # (A) 4.02 X 10*3/uL (1.80-7.70); Neutrophils % (A) 90.4 %; Platelet Count 246 X 10*3/uL (140-440); RBC 4.93 X 10*6/uL (4.10-5.20); RDW 12.5 % (11.5-14.5); WBC 4.45 X 10*3/uL (4.50-10.00)
[2021-09-23 09:31] LABS: African American GFR (CKD) 114.1 (60.0-200.0); Anion Gap 16.7 mmol/L (10.00-18.00); Blood Urea Nitrogen 8.2 mg/dL (9.0-27.0); Calcium 8.5 mg/dL (8.7-10.3); Carbon Dioxide 12.6 mmol/L (20.0-27.5); Non-African American GFR(CKD) 98.4 (60.0-200.0); Phosphorus 2.8 mg/dL (2.4-5.1); Potassium 4.5 mmol/L (3.5-5.5)
[2021-09-23 13:22] VITALS: RESP 17
[2021-09-23 14:50] VITALS: BP 122/82; TEMP 98.1
--- NOTE | 2021-09-23 15:31 | P.DS ---
Providers Date of admission: 09/22/21 10:57 Expected date of discharge: 09/23/21 Attending physician: Yokasta George Primary care physician: Albertina Rothman Hospital Course: Discharge diagnosis 1. Morbid obesity due to excess calories, BMI 54.6 2. Osteoarthritis of the knee 3. Osteoarthritis of the hip 4. Osteoarthritis lower back 5. Hypothyroidism Hospital course Radha Partida is a 46-year-old female who comes with lifelong morbid obesity. She has comorbidities including osteoarthritis of the knees and back. She is status post robotic-assisted laparoscopic sleeve gastrectomy. Patient tolerated surgery well. Upper GI shows no evidence of leak or obstruction. Patient is tolerating her bariatric clear liquid diet. Her pain is controlled. She is up and ambulating. She denies any difficulty urinating. She's afebrile. Patient did note some vision changes. Which is likely side effect. From the scopolamine patch. Scopolamine patch has been discontinued. She is stable for discharge. Physician Qual Research Manager note has been reviewed by physician. Signing provider agrees with the documented findings, assessment, and plan of care. Patient Condition at Discharge: Stable Plan - Discharge Summary Discharge Rx Participant: Yes New Discharge Prescriptions: New bisacodyL [Dulcolax] 5 mg PO DAILY PRN #10 tab PRN Reason: Constipation Ondansetron Odt [Zofran Odt] 4 mg PO Q8HR PRN #9 tab PRN Reason: Nausea Hyoscyamine Oral Drops [Levsin Drops] 0.125 mg PO Q6HR ml Simethicone 40 mg/0.6 ml Drops [Mylicon Drops] 40 mg PO PCHS PRN #30 ml PRN Reason: Gas Omeprazole [PriLOSEC] 40 mg PO DAILY #30 cap Acetaminophen [Tylenol Extra Strength] 1,000 mg PO Q6H PRN #12 tablet PRN Reason: Pain Continue Levothyroxine Sodium [Synthroid] 200 mcg PO DAILY #30 tablet Discharge Medication List Levothyroxine Sodium [Synthroid] 200 mcg PO DAILY #30 tablet 06/04/21 [Rx] Acetaminophen [Tylenol Extra Strength] 1,000 mg PO Q6H PRN #12 tablet 09/23/21 [Rx] Hyoscyamine Oral Drops [Levsin Drops] 0.125 mg PO Q6HR ml 09/23/21 [Rx] Omeprazole [PriLOSEC] 40 mg PO DAILY #30 cap 09/23/21 [Rx] Ondansetron Odt [Zofran Odt] 4 mg PO Q8HR PRN #9 tab 09/23/21 [Rx] Simethicone 40 mg/0.6 ml Drops [Mylicon Drops] 40 mg PO PCHS PRN #30 ml 09/23/21 [Rx] bisacodyL [Dulcolax] 5 mg PO DAILY PRN #10 tab 09/23/21 [Rx] Follow up [facility] [place] [facility] [place] [facility] 9:00 am Activity/Diet/Wound Care/Special Instructions: Continue bariatric clear Liquid diet for 2 weeks No lifting over 4 pounds in 4 weeks May Shower. No soaking in bath tubs for 2 weeks Please notify your surgeon if you develop nausea and vomiting including new onset of abdominal pain. Continue to use incentive spirometry to prevent pneumonias. Please continue to ambulate at home to prevent blood clots in legs. Follow-up at the bariatric center. May shower. Dressings to be discontinued by surgeon in the office. Drink 64 oz of fluid daily. Start protein shakes on . Notify bariatric center for temp over 101.0, increased pain, drainage from incisions. No straws or carbonated beverages. Liquid diet only. Sugar content should be less than 6 g to avoid dumping syndrome. Take MOM for constipation. CRUSH, OPEN, OR CUT TABLETS LARGER THAN A SIZE OF A TIC TAC Discharge Disposition: HOME SELF-CARE
[2021-09-23 16:51] VITALS: PULSE 84
[2021-09-24 14:29] LABS: Magnesium 2.2 mg/dL (1.5-2.4)
== END 2021-09-23 17:24 | disposition home or self-care (01) | DRG 621 ==
LOC: 2ORMAIN 10:57 → 4SSUR 18:50
PROVIDERS: ADMIT Surgery Plastic and Reconstructive Surgery; ATTEND Surgery Plastic and Reconstructive Surgery
PROC: 8E0W4CZ Robotic Assisted Procedure of Trunk Region, Percutaneous Endoscopic Approach (ICD-10-PCS; 2021-09-22)
PROC: 0DB64Z3 Excision of Stomach, Percutaneous Endoscopic Approach, Vertical (ICD-10-PCS; principal; 2021-09-22 12:10)
DX: E66.01 Morbid (severe) obesity due to excess calories (principal); Z68.43 Body mass index [BMI] 50.0-59.9, adult; E03.9 Hypothyroidism, unspecified; M17.0 Bilateral primary osteoarthritis of knee; M47.9 Spondylosis, unspecified; K21.9 Gastro-esophageal reflux disease without esophagitis; M16.10 Unilateral primary osteoarthritis, unspecified hip; Z98.890 Other specified postprocedural states; Z79.890 Hormone replacement therapy
CPT/HCPCS: 74240; 80051; 81025; 82310; 82565; 83735; 84100; 84520; 85025; 86850; 86900; 86901; 88307; 88342; 94640

== ENCOUNTER → 2021-09-26 | Outpatient (CLI) | payer BC ==
--- NOTE | 2021-09-26 09:27 | P.BASOAP ---
Subjective Progress Note Date: 09/26/21 DATE OF SERVICE: 09/26/2021 CHIEF COMPLAINT: Status post sleeve gastrectomy HISTORY OF PRESENT ILLNESS: Radha Partida is a 46-year-old female status post sleeve gastrectomy, 09/22/2021. She is POD 4. She has appropriate left upper quadrant incisional pain. No nausea or vomiting. At height of 5 feet 8 inches, her ideal body weight is 163 pounds. Her highest weight is 363 pounds, body mass index of 54.7. She comes in 339 pounds from 363 pounds, 1 month ago. She has lost 24 pounds in 1 month. Her body mass index is 51.7. She is 176 pounds overweight. Her lifetime weight loss is 24 pounds. Lifetime percent excess weight loss is 12%. PHYSICAL EXAM: VITAL SIGNS: Height 5 foot 8 inches, weight 339 pounds. BMI 51.7 Vital Signs Temp 98.7 F 09/26/21 09:58 Pulse 86 09/26/21 09:58 Resp BP 154/85 09/26/21 09:58 Pulse Ox GENERAL: Well-developed in no acute distress. HEENT: No scleral icterus. Extraocular movements grossly intact. Hears conversational speech. No nasal drainage. NECK: Supple without lymphadenopathy. CHEST: Nonlabored respirations with equal bilateral excursions. CARDIOVASCULAR: Regular rate and regular rhythm. Distal 2+ pulses. ABDOMEN: Dressing discontinued. Abdominal binder repositioned. No infection. Puckering along skin incision. MUSCULOSKELETAL: No clubbing, cyanosis. NEURO: No focal or lateralizing signs. Cranial nerves 2 through 12 grossly within normal limits. PSYCH: Appropriate affect. Alert and oriented to person, place and time. SKIN: Good skin turgor. Well perfused. ASSESSMENT: 1. Morbid obesity due to excess calories 2. Body mass index of 54.6, initial to 51.7 3. Post op nausea and vomiting 4. Hypothyroidism 5. Osteoarthritis right knee 6. H. pylori gastritis 7. Iron deficiency anemia 8. Status post sleeve gastrectomy PLAN: 1. Adjuncts for pain relief includes vibrating massage ball. 2. Recommend using ice packs. 3. Follow-up in one week. 4. Overall clinically progressing. 5. Start protein shakes today. Assessment/Plan Plan: Date: Initial Weight: 165.108 kg Initial BMI: Current Weight: 160.5 kg Current BMI: 50.8 Type of Surgery: Total Volume in Band: Previous Volume: Volume Removed: Volume Added: Band Size:
[2021-09-26 10:01] VITALS: BP 154/85; PULSE 86; TEMP 98.7; BMI 51.7
== END ==
LOC: BARWHC3 08:51
PROVIDERS: ATTEND Surgery Plastic and Reconstructive Surgery
DX: E66.01 Morbid (severe) obesity due to excess calories (principal); Z68.43 Body mass index [BMI] 50.0-59.9, adult; R11.2 Nausea with vomiting, unspecified; E03.9 Hypothyroidism, unspecified; M17.11 Unilateral primary osteoarthritis, right knee; D50.9 Iron deficiency anemia, unspecified; K29.70 Gastritis, unspecified, without bleeding; Z98.84 Bariatric surgery status; B96.81 Helicobacter pylori [H. pylori] as the cause of diseases classified elsewhere; Z88.1 Allergy status to other antibiotic agents
CPT/HCPCS: 99211

== ENCOUNTER → 2021-10-01 | Outpatient (CLI) | payer BC ==
[2021-10-01 14:16] VITALS: BP 130/84; PULSE 67; RESP 16; TEMP 98.2; BMI 50.8
--- NOTE | 2021-10-01 15:02 | P.BASOAP ---
Subjective Progress Note Date: 10/01/21 DATE OF SERVICE: 10/01/2021 CHIEF COMPLAINT: Status post sleeve gastrectomy HISTORY OF PRESENT ILLNESS: Radha Partida is a 46-year-old female status post sleeve gastrectomy, 09/22/2021. She is over 1 week out. She has puckering along the skin. Otherwise she is doing well. No gastroesophageal reflux. At height of 5 feet 8 inches, her ideal body weight is 163 pounds. Her highest weight is 363 pounds, body mass index of 54.7. She comes in 333 pounds from 339 pounds, 1 week ago. She has lost 6 pounds in 1 week. Her body mass index is 50.8. She is 170 pounds overweight. Her lifetime weight loss is 30 pounds. Lifetime percent excess weight loss is 15%. PHYSICAL EXAM: VITAL SIGNS: Height 5 foot 8 inches, weight 333 pounds. BMI 50.8 Vital Signs Temp 98.2 F 10/01/21 14:14 Pulse 67 10/01/21 14:14 Resp 16 10/01/21 14:14 BP 130/84 10/01/21 14:14 Pulse Ox GENERAL: Well-developed in no acute distress. HEENT: No scleral icterus. Extraocular movements grossly intact. Hears conversational speech. No nasal drainage. NECK: Supple without lymphadenopathy. CHEST: Nonlabored respirations with equal bilateral excursions. CARDIOVASCULAR: Regular rate and regular rhythm. Distal 2+ pulses. ABDOMEN: No infection. Puckering along skin incision. MUSCULOSKELETAL: No clubbing, cyanosis. NEURO: No focal or lateralizing signs. Cranial nerves 2 through 12 grossly within normal limits. PSYCH: Appropriate affect. Alert and oriented to person, place and time. SKIN: Good skin turgor. Well perfused. ASSESSMENT: 1. Morbid obesity due to excess calories 2. Body mass index of 54.6, initial to 50.8 3. Post op nausea and vomiting 4. Hypothyroidism 5. Osteoarthritis right knee 6. H. pylori gastritis 7. Iron deficiency anemia 8. Status post sleeve gastrectomy PLAN: 1. Patient has puckering along the skin. Use massaging in the interim. 2. Follow-up one month. Objective - Vital Signs Vital signs: Vital Signs Temp 98.2 F 10/01/21 14:14 Pulse 67 10/01/21 14:14 Resp 16 10/01/21 14:14 BP 130/84 10/01/21 14:14 Pulse Ox Intake & Output 09/30/21 10/01/21 10/01/21 18:59 06:59 18:59 Weight 151.5 kg Assessment/Plan Plan: Date: 10/01/21 Initial Weight: 165.108 kg Initial BMI: 55.3 Current Weight: 151.5 kg Current BMI: 50.8 Type of Surgery: Total Volume in Band: Previous Volume: Volume Removed: Volume Added: Band Size:
== END ==
LOC: BARWHC3 13:25
PROVIDERS: ATTEND Surgery Plastic and Reconstructive Surgery
DX: E66.01 Morbid (severe) obesity due to excess calories (principal); Z68.43 Body mass index [BMI] 50.0-59.9, adult; R11.2 Nausea with vomiting, unspecified; E03.9 Hypothyroidism, unspecified; M17.11 Unilateral primary osteoarthritis, right knee; D50.9 Iron deficiency anemia, unspecified; Z98.84 Bariatric surgery status; K29.70 Gastritis, unspecified, without bleeding; B96.81 Helicobacter pylori [H. pylori] as the cause of diseases classified elsewhere; Z88.1 Allergy status to other antibiotic agents
CPT/HCPCS: 97803; 99211

== ENCOUNTER → 2021-10-15 | Outpatient (CLI) | payer BC ==
[2021-10-15 14:09] VITALS: BP 132/90; PULSE 104; RESP 16; TEMP 99; BMI 50.1
--- NOTE | 2021-10-15 14:45 | P.BASOAP ---
Subjective Progress Note Date: 10/15/21 DATE OF SERVICE: 10/15/2021 CHIEF COMPLAINT: Status post sleeve gastrectomy HISTORY OF PRESENT ILLNESS: Radha Partida is a 46-year-old female status post sleeve gastrectomy, 09/22/2021. She 1 month out. She has lost 20 pounds. She has dimpling of the skin. She had a large bowel movement with release of her pain for the left upper quadrant pain. Her pain has improved. She has a fitbit. At height of 5 feet 8 inches, her ideal body weight is 163 pounds. Her highest weight is 363 pounds, body mass index of 54.7. She comes in 329 pounds from 333 pounds, 2 weeks ago. She has lost 4 pounds in 2 weeks. Her body mass index is 50.2. She is 166 pounds overweight. Her lifetime weight loss is 34 pounds. Lifetime percent excess weight loss is 17%. PHYSICAL EXAM: VITAL SIGNS: Height 5 foot 8 inches, weight 329 pounds. BMI 50.2 Vital Signs Temp 99 F 10/15/21 14:06 Pulse 104 H 10/15/21 14:06 Resp 16 10/15/21 14:06 BP 132/90 10/15/21 14:06 Pulse Ox GENERAL: Well-developed in no acute distress. HEENT: No scleral icterus. Extraocular movements grossly intact. Hears conversational speech. No nasal drainage. NECK: Supple without lymphadenopathy. CHEST: Nonlabored respirations with equal bilateral excursions. CARDIOVASCULAR: Distal 2+ pulses. Repeat heart rate in 80s. ABDOMEN: No infection. Puckering along skin incision. MUSCULOSKELETAL: No clubbing, cyanosis. NEURO: No focal or lateralizing signs. Cranial nerves 2 through 12 grossly within normal limits. PSYCH: Appropriate affect. Alert and oriented to person, place and time. SKIN: Good skin turgor. Well perfused. ASSESSMENT: 1. Morbid obesity due to excess calories 2. Body mass index of 54.6, initial to 50.2 3. Post op nausea and vomiting 4. Hypothyroidism 5. Osteoarthritis right knee 6. H. pylori gastritis 7. Iron deficiency anemia 8. Status post sleeve gastrectomy PLAN: 1. Recommend bariatric labs. 2. May start exercising. Objective - Vital Signs Vital signs: Vital Signs Temp 99 F 10/15/21 14:06 Pulse 104 H 10/15/21 14:06 Resp 16 10/15/21 14:06 BP 132/90 10/15/21 14:06 Pulse Ox Intake & Output 10/14/21 10/15/21 10/15/21 18:59 06:59 18:59 Weight 149.685 kg Assessment/Plan Plan: Date: 10/15/21 Initial Weight: 165.108 kg Initial BMI: 55.3 Current Weight: 149.685 kg Current BMI: 50.1 Type of Surgery: Total Volume in Band: Previous Volume: Volume Removed: Volume Added: Band Size:
== END ==
LOC: BARWHC3 13:56
PROVIDERS: ATTEND Surgery Plastic and Reconstructive Surgery
DX: E66.01 Morbid (severe) obesity due to excess calories (principal); Z68.43 Body mass index [BMI] 50.0-59.9, adult; R11.2 Nausea with vomiting, unspecified; E03.9 Hypothyroidism, unspecified; M17.11 Unilateral primary osteoarthritis, right knee; D50.9 Iron deficiency anemia, unspecified; Z98.84 Bariatric surgery status; K29.70 Gastritis, unspecified, without bleeding; B96.81 Helicobacter pylori [H. pylori] as the cause of diseases classified elsewhere; Z88.1 Allergy status to other antibiotic agents
CPT/HCPCS: 84590; 97803; 99211

== ENCOUNTER → 2021-10-17 | Outpatient (CLI) | payer BC ==
[2021-10-17 22:26] LABS: HCT 41.8 % (37.2-46.3); HGB 13.4 g/dL (12.0-15.0); MCH 27.4 pg (27.0-32.0); MCHC 32.1 g/dL (32.0-37.0); MCV 85.5 fL (80.0-97.0); NRBC Per 100 WBC 0 /100 WBCS (0.0-0.0); Platelet Count 259 X 10*3/uL (140-440); RBC 4.89 X 10*6/uL (4.10-5.20); RDW 13.2 % (11.5-14.5)
[2021-10-17 22:55] LABS: Ferritin 76.5 ng/mL (10.0-291.0); Phosphorus 3.1 mg/dL (2.4-5.1)
[2021-10-17 22:56] LABS: % Iron Saturation 13.31 (12.00-45.00); ALT 19 U/L (8-44); AST 21 U/L (13-35); African American GFR (CKD) 122.7 (60.0-200.0); Albumin 4.5 g/dL (3.8-4.9); Albumin/Globulin Ratio 1.88 (1.60-3.17); Alkaline Phosphatase 48 U/L (41-126); Blood Urea Nitrogen 11.7 mg/dL (9.0-27.0); Calcium 9.5 mg/dL (8.7-10.3); Carbon Dioxide 21.3 mmol/L (20.0-27.5); Chloride 100 mmol/L (96-109); Globulin 2.4 g/dL (1.6-3.3); Glucose 104 mg/dL (70-110); Iron 44 ug/dL (50-170); Non-African American GFR(CKD) 105.9 (60.0-200.0); Potassium 4.1 mmol/L (3.5-5.5); Sodium 137 mmol/L (135-145); Total Iron Binding Capacity 329 ug/dL (228-460)
[2021-10-17 23:04] LABS: Chol/HDL Ratio 3.32 Ratio; LDL Cholesterol,Calculated 104.8 mg/dL (0.0-131.0); VLDL Calculation 12.56 mg/dL (5.00-40.00)
== END | disposition home or self-care (01) ==
LOC: LABWHC1 15:52
PROVIDERS: ATTEND Surgery Plastic and Reconstructive Surgery
DX: E89.1 Postprocedural hypoinsulinemia (principal); E66.01 Morbid (severe) obesity due to excess calories; D50.8 Other iron deficiency anemias; E44.0 Moderate protein-calorie malnutrition; E45 Retarded development following protein-calorie malnutrition; E55.9 Vitamin D deficiency, unspecified; K74.1 Hepatic sclerosis; N19 Unspecified kidney failure; K50.90 Crohn's disease, unspecified, without complications
CPT/HCPCS: 36415; 80053; 80061; 82306; 82525; 82607; 82728; 82746; 83036; 83540; 83550; 83735; 83970; 84100; 84134; 84255; 84425; 84443; 84630; 85027; 85610; 85730

== ENCOUNTER → 2021-12-19 | Outpatient (CLI) | payer BC ==
[2021-12-19 11:49] LABS: Partial Thromboplastin Time 25.8 sec (22.0-30.0); Prothrombin Time 10.7 sec (9.0-12.0)
[2021-12-19 18:37] LABS: WBC 3.52 X 10*3/uL (4.50-10.00)
[2021-12-19 18:38] LABS: HGB 12.4 g/dL (12.0-15.0); MCH 28.4 pg (27.0-32.0); MCHC 31.8 g/dL (32.0-37.0); MCV 89.2 fL (80.0-97.0); Mean Platelet Volume 10.6 fL (9.5-12.2); NRBC Per 100 WBC 0 /100 WBCS (0.0-0.0); Platelet Count 233 X 10*3/uL (140-440); RBC 4.37 X 10*6/uL (4.10-5.20); RDW 13.7 % (11.5-14.5)
[2021-12-19 20:06] LABS: Prealbumin 14.4 mg/dL (18.0-42.0)
[2021-12-19 20:22] LABS: Chol/HDL Ratio 3.04 Ratio
[2021-12-19 20:33] LABS: % Iron Saturation 18.84 (12.00-45.00); ALT 15 U/L (8-44); AST 19 U/L (13-35); African American GFR (CKD) 120.4 (60.0-200.0); Albumin 4.3 g/dL (3.8-4.9); Albumin/Globulin Ratio 1.95 (1.60-3.17); Alkaline Phosphatase 44 U/L (41-126); BUN/Creat Ratio 16.57 Ratio (12.00-20.00); Blood Urea Nitrogen 11.6 mg/dL (9.0-27.0); Calcium 9.3 mg/dL (8.7-10.3); Carbon Dioxide 25.3 mmol/L (20.0-27.5); Chloride 103 mmol/L (96-109); Ferritin 27.7 ng/mL (10.0-291.0); Globulin 2.2 g/dL (1.6-3.3); Glucose 89 mg/dL (70-110); Iron 68 ug/dL (50-170); Magnesium 2.1 mg/dL (1.5-2.4); Non-African American GFR(CKD) 103.9 (60.0-200.0); Phosphorus 3.7 mg/dL (2.4-5.1); Potassium 4.3 mmol/L (3.5-5.5); Sodium 138 mmol/L (135-145); Total Iron Binding Capacity 360 ug/dL (228-460); Total Protein 6.5 g/dL (6.2-8.2)
== END | disposition home or self-care (01) ==
LOC: LABWHC1 09:53
PROVIDERS: ATTEND Surgery Plastic and Reconstructive Surgery
DX: D50.8 Other iron deficiency anemias (principal); E89.1 Postprocedural hypoinsulinemia; E44.0 Moderate protein-calorie malnutrition; E45 Retarded development following protein-calorie malnutrition; K74.1 Hepatic sclerosis; N19 Unspecified kidney failure; T56.894A Toxic effect of other metals, undetermined, initial encounter
CPT/HCPCS: 36415; 80053; 80061; 82306; 82525; 82607; 82728; 82746; 83036; 83540; 83550; 83721; 83735; 83970; 84100; 84134; 84255; 84425; 84443; 84590; 85027; 85610; 85730

== ENCOUNTER → 2022-01-23 | Outpatient (CLI) | payer BC | END | disposition home or self-care (01) | LOC: LABWHC1 12:36 | PROVIDERS: ATTEND Surgery Plastic and Reconstructive Surgery | DX: E44.0 Moderate protein-calorie malnutrition (principal); E66.01 Morbid (severe) obesity due to excess calories | CPT/HCPCS: 36415; 84443 ==

== ENCOUNTER → 2022-03-11 | Outpatient (CLI) | payer BC ==
[2022-03-11 13:10] VITALS: BP 116/82; PULSE 64; TEMP 98.4; BMI 44.6
--- NOTE | 2022-03-11 14:15 | P.BASOAP ---
Subjective Progress Note Date: 03/11/22 Highest 365 pounds now 294 pounds. She is almost 6 months out. Increase synthroid new TSH level. No abdominal pain. Objective - Vital Signs Vital signs: Vital Signs Temp 98.4 F 03/11/22 13:05 Pulse 64 03/11/22 13:05 Resp BP 116/82 03/11/22 13:05 Pulse Ox FiO2 Intake & Output 03/10/22 03/11/22 03/11/22 18:59 06:59 18:59 Weight 133.356 kg Assessment/Plan Plan: Date: 03/11/22 Initial Weight: 165.108 kg Initial BMI: 55.3 Current Weight: 133.356 kg Current BMI: 44.6 Type of Surgery: Total Volume in Band: Previous Volume: Volume Removed: Volume Added: Band Size:
[2022-03-11 15:32] LABS: Partial Thromboplastin Time 26.6 sec (22.0-30.0); Prothrombin Time 10.9 sec (9.0-12.0)
[2022-03-11 19:19] LABS: HCT 38.2 % (37.2-46.3); HGB 12.9 g/dL (12.0-15.0); MCH 29.4 pg (27.0-32.0); MCHC 33.8 g/dL (32.0-37.0); Mean Platelet Volume 10.3 fL (9.5-12.2); NRBC Per 100 WBC 0 /100 WBCS (0.0-0.0); Platelet Count 227 X 10*3/uL (140-440); RBC 4.39 X 10*6/uL (4.10-5.20); RDW 14.1 % (11.5-14.5); WBC 6.01 X 10*3/uL (4.50-10.00)
[2022-03-11 19:22] LABS: % Iron Saturation 9.89 (12.00-45.00); ALT 11 U/L (8-44); AST 22 U/L (13-35); African American GFR (CKD) 119.6 (60.0-200.0); Albumin 4.5 g/dL (3.8-4.9); Albumin/Globulin Ratio 1.61 (1.60-3.17); Alkaline Phosphatase 52 U/L (41-126); BUN/Creat Ratio 23.57 Ratio (12.00-20.00); Blood Urea Nitrogen 16.5 mg/dL (9.0-27.0); Calcium 9.5 mg/dL (8.7-10.3); Carbon Dioxide 26.3 mmol/L (20.0-27.5); Chloride 102 mmol/L (96-109); Ferritin 27.1 ng/mL (10.0-291.0); Globulin 2.8 g/dL (1.6-3.3); Glucose 85 mg/dL (70-110); Iron 37 ug/dL (50-170); Magnesium 2.1 mg/dL (1.5-2.4); Non-African American GFR(CKD) 103.2 (60.0-200.0); Phosphorus 3.9 mg/dL (2.4-5.1); Potassium 4.3 mmol/L (3.5-5.5); Sodium 139 mmol/L (135-145); Total Iron Binding Capacity 378 ug/dL (228-460); Total Protein 7.3 g/dL (6.2-8.2)
[2022-03-11 19:26] LABS: Chol/HDL Ratio 2.91 Ratio; LDL Cholesterol,Calculated 121.1 mg/dL (0.0-131.0); Prealbumin 14.7 mg/dL (18.0-42.0); VLDL Calculation 10.22 mg/dL (5.00-40.00)
[2022-03-12 15:13] LABS: Zinc, Serum 70 ug/dL (60-130)
[2022-03-13 06:19] LABS: Vitamin A 37 ug/dL (38-106)
[2022-03-13 06:28] LABS: Vit B1(Thiamine) 74 ug/L (38-122)
[2022-03-15 08:38] LABS: Selenium 127 mcg/L (63-160)
== END ==
LOC: BARWHC3 12:51
PROVIDERS: ATTEND Surgery Plastic and Reconstructive Surgery
DX: E66.01 Morbid (severe) obesity due to excess calories (principal); D50.8 Other iron deficiency anemias; D50.9 Iron deficiency anemia, unspecified; K91.2 Postsurgical malabsorption, not elsewhere classified; E44.0 Moderate protein-calorie malnutrition; E44.1 Mild protein-calorie malnutrition; E45 Retarded development following protein-calorie malnutrition; E55.9 Vitamin D deficiency, unspecified; N19 Unspecified kidney failure; T56.894A Toxic effect of other metals, undetermined, initial encounter; E46 Unspecified protein-calorie malnutrition; Z88.1 Allergy status to other antibiotic agents; Z68.41 Body mass index [BMI] 40.0-44.9, adult
CPT/HCPCS: 80053; 80061; 82306; 82525; 82607; 82728; 82746; 83036; 83540; 83550; 83735; 83970; 84100; 84134; 84255; 84425; 84443; 84590; 84630; 85027; 85610; 85730; 97803; 99211

== ENCOUNTER → 2022-06-05 | Outpatient (CLI) | payer BC ==
--- NOTE | 2022-06-05 12:36 | US ---
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 patient on synthroid. hypothyroidism GLAND SIZE: Right Lobe: Surgically absent Left Lobe: 4.8 x 1.2 x 1.4 cm Overall Parenchyma: homogeneous Isthmus Thickness: 0.2 cm NODULES RIGHT: # of nodules measured on right: 0 LEFT: # of nodules measured on left: 0 ISTHMUS: # of nodules measured in the isthmus: 0 Bilateral neck scanned, no evidence of lymphadenopathy. IMPRESSION: No discrete abnormality seen. Right thyroid lobe is surgically absent.
== END | disposition home or self-care (01) ==
LOC: RADUSWWP 12:13
PROVIDERS: ATTEND Family Medicine
DX: E03.9 Hypothyroidism, unspecified (principal); E06.3 Autoimmune thyroiditis; Z90.89 Acquired absence of other organs
CPT/HCPCS: 76536

== ENCOUNTER → 2022-06-10 | Outpatient (CLI) | payer BC ==
[2022-06-10 13:05] VITALS: BP 158/96; PULSE 80; TEMP 98.5; BMI 43.4
--- NOTE | 2022-06-10 14:05 | P.BASOAP ---
Subjective Progress Note Date: 06/10/22 Lost 80 pounds this year. Thyroid supplement should be taken by itself. She is not eating well. Labs from 3 months ago with low vitamin A, iron. FU for 1 year visit. Objective - Vital Signs Vital signs: Vital Signs Temp 98.5 F 06/10/22 13:00 Pulse 80 06/10/22 13:00 Resp BP 158/96 06/10/22 13:00 Pulse Ox FiO2 Intake & Output 06/09/22 06/10/22 06/10/22 18:59 06:59 18:59 Weight 129.727 kg Assessment/Plan Plan: Date: 06/10/22 Initial Weight: 165.108 kg Initial BMI: 55.3 Current Weight: 129.727 kg Current BMI: 43.4 Type of Surgery: Total Volume in Band: Previous Volume: Volume Removed: Volume Added: Band Size:
[2022-06-10 15:20] LABS: INR 0.9 (<1.2); Partial Thromboplastin Time 25.9 sec (22.0-30.0); Prothrombin Time 10.3 sec (9.0-12.0)
[2022-06-10 17:55] LABS: HCT 42.1 % (37.2-46.3); HGB 13.5 g/dL (12.0-15.0); MCHC 32.1 g/dL (32.0-37.0); MCV 90.3 fL (80.0-97.0); Mean Platelet Volume 10.4 fL (9.5-12.2); NRBC Per 100 WBC 0 /100 WBCS (0.0-0.0); Platelet Count 230 X 10*3/uL (140-440); RBC 4.66 X 10*6/uL (4.10-5.20); RDW 13.2 % (11.5-14.5); WBC 4.12 X 10*3/uL (4.50-10.00)
[2022-06-10 18:50] LABS: Chol/HDL Ratio 2.78 Ratio; LDL Cholesterol,Calculated 133.5 mg/dL (0.0-131.0); Prealbumin 19.9 mg/dL (18.0-42.0); VLDL Calculation 9.42 mg/dL (5.00-40.00)
[2022-06-10 21:22] LABS: % Iron Saturation 11.86 (12.00-45.00); ALT 22 U/L (8-44); AST 27 U/L (13-35); African American GFR (CKD) 114.6 (60.0-200.0); Albumin 4.5 g/dL (3.8-4.9); Albumin/Globulin Ratio 1.89 (1.60-3.17); Alkaline Phosphatase 57 U/L (41-126); BUN/Creat Ratio 21.79 Ratio (12.00-20.00); Blood Urea Nitrogen 15.8 mg/dL (9.0-27.0); Calcium 9.5 mg/dL (8.7-10.3); Carbon Dioxide 25.1 mmol/L (20.0-27.5); Chloride 100 mmol/L (96-109); Ferritin 28.1 ng/mL (10.0-291.0); Globulin 2.4 g/dL (1.6-3.3); Glucose 94 mg/dL (70-110); Iron 49 ug/dL (50-170); Magnesium 2.1 mg/dL (1.5-2.4); Non-African American GFR(CKD) 98.9 (60.0-200.0); Phosphorus 3.8 mg/dL (2.4-5.1); Potassium 4.1 mmol/L (3.5-5.5); Sodium 139 mmol/L (135-145); Total Iron Binding Capacity 416 ug/dL (228-460); Total Protein 6.8 g/dL (6.2-8.2)
[2022-06-11 13:24] LABS: Zinc, Serum 61 ug/dL (60-130)
[2022-06-12 06:14] LABS: Vitamin A 40 ug/dL (38-106)
== END | disposition home or self-care (01) ==
LOC: BARWHC3 12:51
PROVIDERS: ATTEND Surgery Plastic and Reconstructive Surgery
DX: E66.01 Morbid (severe) obesity due to excess calories (principal); E89.1 Postprocedural hypoinsulinemia; D50.8 Other iron deficiency anemias; D50.9 Iron deficiency anemia, unspecified; K91.2 Postsurgical malabsorption, not elsewhere classified; E44.0 Moderate protein-calorie malnutrition; E44.1 Mild protein-calorie malnutrition; E45 Retarded development following protein-calorie malnutrition; E46 Unspecified protein-calorie malnutrition; E55.9 Vitamin D deficiency, unspecified; K74.1 Hepatic sclerosis; N19 Unspecified kidney failure; T56.894A Toxic effect of other metals, undetermined, initial encounter; K50.90 Crohn's disease, unspecified, without complications
CPT/HCPCS: 80053; 80061; 82306; 82525; 82607; 82728; 82746; 83036; 83540; 83550; 83735; 83970; 84100; 84134; 84255; 84425; 84443; 84590; 84630; 85027; 85610; 85730; 99211

== ENCOUNTER → 2022-08-26 | Outpatient (CLI) | payer BC ==
--- NOTE | 2022-08-27 13:33 | MM ---
Reason for Exam: Screening (asymptomatic). Last mammogram was performed 1 year(s) and 3 month(s) ago. Patient History: Menarche at age 13. First Full-Term at age 18. Hormonal Contraceptives for 3 years from age 19 until age 22. Last menstrual period: 08/26/2022 Risk Values: Lyssa 5 year model risk: 0.6%. NCI Lifetime model risk: 6.8%. Prior Study Comparison: 10/19/2017 Bilateral Screening Mammogram, [facility]. 05/19/2019 Bilateral Screening Mammogram, [facility]. 05/30/2021 Bilateral Screening Mammogram, [facility]. Tissue Density: The breast tissue is heterogeneously dense. This may lower the sensitivity of mammography. Findings: Analyzed By CAD. There is no suspicious group of microcalcifications or new suspicious mass in either breast. Overall Assessment: Negative, BI-RAD 1 Management: Screening Mammogram of both breasts in 1 year. A clinical breast exam by your physician is recommended on an annual basis and results should be correlated with mammographic findings. [facility] will attempt to contact patient to return for supplemental views and ultrasound if indicated. Electronically signed and approved by: Domenic Zhang DO
== END | disposition home or self-care (01) ==
LOC: RADMAMWWP 07:23
PROVIDERS: ATTEND Family Medicine
DX: Z12.31 Encounter for screening mammogram for malignant neoplasm of breast (principal)
CPT/HCPCS: 77063; 77067

== ENCOUNTER → 2023-05-04 | Outpatient (CLI) | payer BC ==
[2023-05-04 15:10] LABS: Basophils # (A) 0.05 X 10*3/uL (0.00-0.10); Basophils % (A) 1.1 %; Eosinophils % (A) 2.2 %; HCT 42.9 % (37.2-46.3); HGB 13.7 d/dL (12.0-15.0); Lymphocytes # (A) 1.34 X 10*3/uL (0.90-5.00); Lymphocytes % (A) 28.9 %; MCH 28.7 pg (27.0-32.0); MCHC 31.9 d/dL (32.0-37.0); MCV 89.7 FL (80.0-97.0); Mean Platelet Volume 10.1 FL (9.5-12.2); Monocytes % (A) 8.6 %; NRBC Per 100 WBC 0 X 10*3/uL (0.00-0.01); Neutrophils # (A) 2.73 X 10*3/uL (1.80-7.70); Platelet Count 231 X 10*3/uL (140-440); RBC 4.78 X 10*6/uL (4.10-5.20); RDW 13.1 % (11.5-14.5); WBC 4.63 X 10*3/uL (4.50-10.00)
[2023-05-04 16:13] LABS: % Iron Saturation 22.25 (12.00-45.00); ALT 14 U/L (8-44); AST 22 U/L (13-35); Albumin 4.6 d/dL (3.8-4.9); Albumin/Globulin Ratio 1.92 Ratio (1.60-3.17); Alkaline Phosphatase 52 U/L (41-126); BUN/Creat Ratio 17.25 Ratio (12.00-20.00); Blood Urea Nitrogen 13.8 mg/dL (9.0-27.0); Calcium 9.8 mg/dL (8.7-10.3); Carbon Dioxide 26.2 mmol/L (21.6-31.8); Chloride 104 mmol/L (96-109); Ferritin 20.8 ng/mL (10.0-291.0); Globulin 2.4 d/dL (1.6-3.3); Glucose 84 mg/dL (70-110); Iron 91 UG/DL (50-170); LDL Cholesterol,Calculated 130.4 mg/dL (0.0-131.0); Potassium 4.6 mmol/L (3.5-5.5); Sodium 141 mmol/L (135-145); Total Bilirubin 0.4 mg/dL (0.3-1.2); Total Iron Binding Capacity 409 UG/DL (228-460); VLDL Calculation 12.42 mg/dL (5.00-40.00)
== END | disposition home or self-care (01) ==
LOC: LABWHC1 09:32
PROVIDERS: ATTEND Family Medicine
DX: Z13.21 Encounter for screening for nutritional disorder (principal); Z13.228 Encounter for screening for other metabolic disorders; Z13.220 Encounter for screening for lipoid disorders; Z13.29 Encounter for screening for other suspected endocrine disorder; Z98.84 Bariatric surgery status; E03.9 Hypothyroidism, unspecified
CPT/HCPCS: 36415; 80053; 80061; 82306; 82607; 82728; 83036; 83540; 83550; 84443; 85025

== ENCOUNTER → 2024-05-08 | Outpatient (CLI) | payer BC ==
[2024-05-08 15:01] LABS: Basophils # (A) 0.03 X 10*3/uL (0.00-0.10); Basophils % (A) 0.8 %; Eosinophils # (A) 0.07 X 10*3/uL (0.04-0.35); Eosinophils % (A) 1.9 %; HCT 44.9 % (37.2-46.3); HGB 14.5 g/dL (12.0-15.0); Lymphocytes # (A) 1.14 X 10*3/uL (0.90-5.00); Lymphocytes % (A) 31.1 %; MCH 29.2 pg (27.0-32.0); MCHC 32.3 g/dL (32.0-37.0); MCV 90.3 FL (80.0-97.0); Mean Platelet Volume 10.4 FL (9.5-12.2); Monocytes # (A) 0.43 X 10*3/uL (0.20-1.00); Monocytes % (A) 11.7 %; NRBC Per 100 WBC 0 X 10*3/uL (0.00-0.01); Neutrophils # (A) 1.98 X 10*3/uL (1.80-7.70); Neutrophils % (A) 54.2 %; Platelet Count 233 X 10*3/uL (140-440); RBC 4.97 X 10*6/uL (4.10-5.20); RDW 12.2 % (11.5-14.5); WBC 3.66 X 10*3/uL (4.50-10.00)
[2024-05-08 16:28] LABS: % Iron Saturation 18.83 (12.00-45.00); ALT 18 U/L (8-44); AST 31 U/L (13-35); Albumin 4.6 g/dL (3.8-4.9); Albumin/Globulin Ratio 1.92 Ratio (1.60-3.17); Alkaline Phosphatase 51 U/L (41-126); Blood Urea Nitrogen 12.8 mg/dL (9.0-27.0); Calcium 9.6 mg/dL (8.7-10.3); Carbon Dioxide 26.2 mmol/L (21.6-31.8); Chloride 101 mmol/L (96-109); Chol/HDL Ratio 2.14 Ratio; Ferritin 40.1 ng/mL (10.0-291.0); Globulin 2.4 g/dL (1.6-3.3); Glucose 94 mg/dL (70-110); Iron 71 UG/DL (50-170); LDL Cholesterol,Calculated 95.8 mg/dL (0.0-131.0); Potassium 5.4 mmol/L (3.5-5.5); Sodium 137 mmol/L (135-145); Total Bilirubin 0.4 mg/dL (0.3-1.2); Total Iron Binding Capacity 377 UG/DL (228-460); VLDL Calculation 7.14 mg/dL (5.00-40.00)
== END | disposition home or self-care (01) ==
LOC: LABWHC1 09:16
PROVIDERS: ATTEND Nurse Practitioner Family
CPT/HCPCS: 36415; 80053; 80061; 82306; 82607; 82728; 83036; 83540; 83550; 84439; 84443; 85025